=== PATIENT | male | born 1990 | race Caucasian/White ===

== ENCOUNTER 2020-09-10 16:01 | Outpatient (REF) | payer BC, SELFPAY ==
[2020-09-12 18:32] LABS: C. trachomatis RNA TMA NOT DETECTED (NOT DETECTED); N. gonorrhoeae RNA TMA NOT DETECTED (NOT DETECTED)
== END 2020-09-10 16:02 | disposition home or self-care (01) ==
LOC: HO.LAB 16:01
PROVIDERS: Visit Provider Nurse Practitioner Family
DX: Z11.3 Encounter for screening for infections with a predominantly sexual mode of transmission (principal)
CPT/HCPCS: 36415; 87491; 87591

== ENCOUNTER 2020-09-11 14:55 | Outpatient (REF) | payer BC, SELFPAY ==
[2020-09-12 08:31] LABS: HBS Num1 35.89 mIU/mL (0-7.99); HBc Num1 0.08 S/CO (0.00-0.79); HBsAGNum1 0.21 S/CO (0.00-0.99); Hepatitis B Core Antibody Nonreactive (Nonreactive); Hepatitis B Surface Antigen Negative (Negative); ~HepC Num1 0.17 S/CO (0.00-0.79); ~Hepatitis B Surface Antibody REACTIVE (Nonreactive); ~Hepatitis C Antibody Nonreactive (Nonreactive)
[2020-09-12 08:38] LABS: Syphilis Screen Nonreactive (Nonreactive)
[2020-09-12 08:48] LABS: HIV AB/AG Nonreactive (Nonreactive); HIV Num 1 0.36 S/CO (0.00-0.99)
[2020-09-12 13:02] LABS: Herpes Simplex Type 1 IgG <0.90 index; Herpes Simplex Type 2 IgG <0.90 index
== END 2020-09-11 14:56 | disposition home or self-care (01) ==
LOC: HO.HMGCLDS 14:55
PROVIDERS: PCP Internal Medicine; Visit Provider Nurse Practitioner Family
DX: Z11.3 Encounter for screening for infections with a predominantly sexual mode of transmission (principal); Z11.8 Encounter for screening for other infectious and parasitic diseases; Z11.59 Encounter for screening for other viral diseases; Z11.4 Encounter for screening for human immunodeficiency virus [HIV]; Z71.1 Person with feared health complaint in whom no diagnosis is made
CPT/HCPCS: 36415; 86695; 86696; 86704; 86706; 86780; 86803; 87340; 87389

== ENCOUNTER 2020-10-23 15:05 | Outpatient (REF) | payer BC, SELFPAY ==
[2020-10-24 06:41] LABS: Herpes Simplex Type 1 IgG <0.90 index; Herpes Simplex Type 2 IgG <0.90 index
[2020-10-24 08:05] LABS: Syphilis Screen Nonreactive (Nonreactive)
[2020-10-24 08:20] LABS: HBS Num1 35.23 mIU/mL (0-7.99); HBc Num1 0.16 S/CO (0.00-0.79); HIV AB/AG Nonreactive (Nonreactive); HIV Num 1 0.06 S/CO (0.00-0.99); Hepatitis A Antibody IgM 0.22 Index (0-0.79); Hepatitis B Core Antibody Nonreactive (Nonreactive); ~Hepatitis A Antibody IgM Nonreactive (Nonreactive); ~Hepatitis B Surface Antibody REACTIVE (Nonreactive)
[2020-10-24 08:47] LABS: HBsAGNum1 0.16 S/CO (0.00-0.99); Hepatitis B Surface Antigen Negative (Negative); ~HepC Num1 0.15 S/CO (0.00-0.79); ~Hepatitis C Antibody Nonreactive (Nonreactive)
[2020-10-25 09:47] LABS: C. trachomatis RNA TMA NOT DETECTED (NOT DETECTED); N. gonorrhoeae RNA TMA NOT DETECTED (NOT DETECTED)
== END 2020-10-23 15:06 | disposition home or self-care (01) ==
LOC: HO.HMGCLDS 15:05
PROVIDERS: PCP Internal Medicine; Visit Provider Nurse Practitioner Family
DX: Z11.3 Encounter for screening for infections with a predominantly sexual mode of transmission (principal); Z71.1 Person with feared health complaint in whom no diagnosis is made
CPT/HCPCS: 36415; 86695; 86696; 86704; 86706; 86709; 86780; 86803; 87340; 87389; 87491; 87591

== ENCOUNTER 2021-02-02 14:55 | Outpatient (REF) | payer BC, SELFPAY ==
[2021-02-02 17:23] LABS: Syphilis Screen Nonreactive (Nonreactive)
[2021-02-03 04:01] LABS: HBS Num1 34.76 mIU/mL (0-7.99); HIV AB/AG Nonreactive (Nonreactive); HIV Num 1 0.08 S/CO (0.00-0.99); ~Hepatitis B Surface Antibody REACTIVE (Nonreactive)
[2021-02-03 04:05] LABS: HBc Num1 0.07 S/CO (0.00-0.79); HBsAGNum1 0.18 S/CO (0.00-0.99); Hepatitis B Core Antibody Nonreactive (Nonreactive); Hepatitis B Surface Antigen Negative (Negative); ~HepC Num1 0.14 S/CO (0.00-0.79); ~Hepatitis C Antibody Nonreactive (Nonreactive)
[2021-02-03 06:05] LABS: CT PCR NOT DETECTED (Not Detect.); NG PCR NOT DETECTED (Not Detect.)
[2021-02-04 07:29] LABS: Hepatitis A Antibody IgM 0.18 Index (0-0.79); ~Hepatitis A Antibody IgM Nonreactive (Nonreactive)
[2021-02-08 18:12] LABS: HSV 1 IgM IFA Negative (Negative); HSV 2 IgM IFA Negative (Negative)
== END 2021-02-02 14:56 | disposition home or self-care (01) ==
LOC: HO.HMGCLDS 14:55
PROVIDERS: Hospitalist; Nurse Practitioner Family; PCP Internal Medicine; Visit Provider Internal Medicine
DX: Z01.84 Encounter for antibody response examination (principal); Z11.4 Encounter for screening for human immunodeficiency virus [HIV]; Z11.3 Encounter for screening for infections with a predominantly sexual mode of transmission; Z72.51 High risk heterosexual behavior; Z71.1 Person with feared health complaint in whom no diagnosis is made
CPT/HCPCS: 36415; 86695; 86696; 86704; 86706; 86709; 86780; 86803; 87340; 87389; 87491; 87591

== ENCOUNTER 2021-03-03 15:30 | Outpatient (REF) | payer BC, SELFPAY ==
--- NOTE | ~2021-03-03 | XR_ITS ---
EXAMINATION: XR LUMBOSACRAL SPINE CLINICAL INFORMATION: Low back pain COMPARISON: Previous x-ray March [address] March 2011 TECHNIQUE: Three views of the lumbosacral spine. FINDINGS: Bone alignment is normal. No fracture or dislocation is seen. There is new cystic change or lucency and surrounding increased sclerosis in the anterior superior L4 vertebral body endplate. Possible infection/discitis should be considered. There is lucency in the more posterior L4 vertebral body likely corresponding to known bone cyst or lipoma. Disc spaces are normal. Facet joints appear normal. Paraspinal soft tissues are normal. XR/XR lumbar spine 2-3V IMPRESSION: New lucency or cystic change in the anterior superior endplate of the L4 vertebral body and surrounding increased sclerosis. Possible infection should be considered. Follow-up lumbar spine MRI recommended. Findings will be communicated by the [place] work flow board certified music therapist Everette Alcala.
== END 2021-03-03 15:31 | disposition home or self-care (01) ==
LOC: HO.HMGCX 15:30
PROVIDERS: PCP Internal Medicine; Visit Provider Nurse Practitioner Family
DX: M46.26 Osteomyelitis of vertebra, lumbar region (principal)
CPT/HCPCS: 72100

== ENCOUNTER 2021-03-31 12:47 | Outpatient (REF) | payer BC, SELFPAY ==
--- NOTE | ~2021-03-31 | MR_ITS ---
MR LUMBAR SPINE WITHOUT AND WITH CONTRAST CLINICAL INFORMATION: Osteomyelitis of the lumbar vertebra. COMPARISON: Lumbar spine radiographs 03/03/[address] 03/29/2011. TECHNIQUE: MRI of the lumbar spine was obtained using routine sequences with and without contrast. Intravenous contrast: Gadavist 10 mL FINDINGS: There are 5 nonrib-bearing lumbar-type vertebral bodies. There is an acute upper endplate Schmorl's node anteriorly at L4 with surrounding bone marrow edema and enhancement. No abnormal signal nor enhancement within the adjacent disc nor the adjacent vertebral body to suggest the presence of osteomyelitis discitis. There is an intraosseous hemangioma more posteriorly within the L4 vertebral body. Chronic endplate Schmorl's nodes at the lower thoracic levels and at the L1, L2, and L3 levels. No acute fractures. No paravertebral soft tissue swelling. No epidural collections. No suspicious enhancing intraosseous lesions. The conus terminates at the L1 level. There is no pathologic enhancement along the cauda equina nerve roots. L1-L2: Diffuse annular disc bulge. No central canal stenosis and no foraminal stenosis. L2-L3: Disc contour is normal. Mild bilateral facet arthropathy. No central canal stenosis and no foraminal stenosis. L3-L4: Diffuse annular disc bulge and mild to moderate bilateral facet arthropathy. No central canal stenosis and no foraminal stenosis. L4-L5: Diffuse annular disc bulge and severe bilateral facet arthropathy and ligamentum flavum thickening. There is mild to moderate bilateral foraminal stenosis. L5-S1: Diffuse annular disc bulge and mild bilateral facet arthropathy. No central canal stenosis. Mild foraminal encroachment bilaterally. MR/MR lumbar spine wo/w con IMPRESSION: - There is an acute upper endplate Schmorl's node anteriorly at L4 with surrounding bone marrow edema and enhancement. No abnormal signal nor enhancement within the adjacent disc nor the adjacent vertebral body to suggest the presence of osteomyelitis discitis. There is an intraosseous hemangioma more posteriorly within the L4 vertebral body. - Spondylitic changes throughout the lumbar spine as described. No severe central canal stenosis and no severe foraminal stenosis within the lumbar spine.
== END 2021-03-31 12:48 | disposition home or self-care (01) ==
LOC: HO.MRI 12:47
PROVIDERS: PCP Internal Medicine; Visit Provider Nurse Practitioner Family
DX: M46.26 Osteomyelitis of vertebra, lumbar region (principal)
CPT/HCPCS: 72158; A9585

== ENCOUNTER 2021-04-06 13:20 | Outpatient (REF) | payer BC, SELFPAY ==
[2021-04-07 09:26] LABS: CT PCR NOT DETECTED (Not Detect.); NG PCR NOT DETECTED (Not Detect.)
[2021-04-08 08:02] LABS: HBc Num1 0.17 S/CO (0.00-0.79); HBsAGNum1 0.18 S/CO (0.00-0.99); Hepatitis B Core Antibody Nonreactive (Nonreactive); Hepatitis B Surface Antigen Negative (Negative); ~HepC Num1 0.22 S/CO (0.00-0.79); ~Hepatitis C Antibody Nonreactive (Nonreactive)
[2021-04-08 08:31] LABS: Syphilis Screen Nonreactive (Nonreactive)
[2021-04-08 08:39] LABS: HBS Num1 36.14 mIU/mL (0-7.99); HIV AB/AG Nonreactive (Nonreactive); HIV Num 1 0.07 S/CO (0.00-0.99); ~Hepatitis B Surface Antibody REACTIVE (Nonreactive)
[2021-04-15 13:21] LABS: HSV 1 IgM IFA Negative (Negative); HSV 2 IgM IFA Negative (Negative)
== END 2021-04-06 13:21 | disposition home or self-care (01) ==
LOC: HO.HMGCLDS 13:20
PROVIDERS: PCP Internal Medicine; Visit Provider Hospitalist
DX: Z72.51 High risk heterosexual behavior (principal); Z11.3 Encounter for screening for infections with a predominantly sexual mode of transmission
CPT/HCPCS: 36415; 86695; 86696; 86704; 86706; 86780; 86803; 87340; 87389; 87491; 87591

== ENCOUNTER 2021-09-17 10:12 | Outpatient (REF) | payer BC, SELFPAY ==
[2021-09-17 12:07] LABS: HIV AB/AG Nonreactive (Nonreactive); HIV Num 1 0.07 S/CO (0.00-0.99); ~HepC Num1 0.21 S/CO (0.00-0.79); ~Hepatitis C Antibody Nonreactive (Nonreactive)
[2021-09-17 13:49] LABS: CT PCR NOT DETECTED (Not Detect.); NG PCR NOT DETECTED (Not Detect.)
[2021-09-18 08:34] LABS: Syphilis Screen Nonreactive (Nonreactive)
[2021-09-18 09:01] LABS: Herpes Simplex Type 1 IgG <0.90 index; Herpes Simplex Type 2 IgG <0.90 index
== END 2021-09-17 10:13 | disposition home or self-care (01) ==
LOC: HO.HMGCLDS 10:12
PROVIDERS: PCP Nurse Practitioner Family; Visit Provider Nurse Practitioner Family
DX: Z11.4 Encounter for screening for human immunodeficiency virus [HIV] (principal); Z11.3 Encounter for screening for infections with a predominantly sexual mode of transmission
CPT/HCPCS: 36415; 86695; 86696; 86780; 86803; 87389; 87491; 87591

== ENCOUNTER 2021-10-02 11:28 | Outpatient (REF) | payer BC, SELFPAY ==
[2021-10-05 23:17] LABS: Herpes Simplex Type 1 IgG <0.90 index; Herpes Simplex Type 2 IgG <0.90 index
== END 2021-10-02 11:29 | disposition home or self-care (01) ==
LOC: HO.HMGCLDS 11:28
PROVIDERS: Visit Provider Internal Medicine
DX: Z11.3 Encounter for screening for infections with a predominantly sexual mode of transmission (principal)
CPT/HCPCS: 36415; 86695; 86696

== ENCOUNTER 2021-11-05 16:58 | Outpatient (REF) | payer BC, SELFPAY ==
[2021-11-06 09:47] LABS: CT PCR NOT DETECTED (Not Detect.); NG PCR NOT DETECTED (Not Detect.)
== END 2021-11-05 16:59 | disposition home or self-care (01) ==
LOC: HO.LNP 16:58
PROVIDERS: Visit Provider Internal Medicine
DX: N34.2 Other urethritis (principal)
CPT/HCPCS: 87491; 87591

== ENCOUNTER 2021-12-17 14:58 | Outpatient (REF) | payer BC, SELFPAY ==
[2021-12-18 07:44] LABS: HBS Num1 33.22 mIU/mL (0-7.99); HBsAGNum1 0.19 S/CO (0.00-0.99); HIV AB/AG Nonreactive (Nonreactive); HIV Num 1 0.07 S/CO (0.00-0.99); Hepatitis A Antibody IgM 0.15 Index (0-0.79); Hepatitis B Core Antibody Nonreactive (Nonreactive); Hepatitis B Surface Antigen Negative (Negative); ~HepC Num1 0.16 S/CO (0.00-0.79); ~Hepatitis A Antibody IgM Nonreactive (Nonreactive); ~Hepatitis B Surface Antibody REACTIVE (Nonreactive); ~Hepatitis C Antibody Nonreactive (Nonreactive)
[2021-12-18 08:46] LABS: Syphilis Screen Nonreactive (Nonreactive)
[2021-12-25 21:11] LABS: Chlamydia Pneumoniae IgA <1:16 titer (<1:16); Chlamydia Pneumoniae IgM <1:10 titer (<1:10); Chlamydia Psittaci IgA <1:16 titer (<1:16); Chlamydia Psittaci IgG <1:64 titer (<1:64); Chlamydia Psittaci IgM <1:10 titer (<1:10); Chlamydia Trachomatis IgA <1:16 titer (<1:16); Chlamydia Trachomatis IgG <1:64 titer (<1:64); Chlamydia Trachomatis IgM <1:10 titer (<1:10)
== END 2021-12-17 14:59 | disposition home or self-care (01) ==
LOC: HO.HMGCLDS 14:58
PROVIDERS: PCP Internal Medicine; Visit Provider Nurse Practitioner Acute Care
DX: Z11.3 Encounter for screening for infections with a predominantly sexual mode of transmission (principal)
CPT/HCPCS: 36415; 86631; 86632; 86704; 86706; 86709; 86780; 86803; 87340; 87389

== ENCOUNTER 2022-01-04 09:13 | Outpatient (REF) | payer BC, SELFPAY ==
[2022-01-04 11:25] LABS: MANUAL DIFF FLAG NO
[2022-01-04 11:35] LABS: Basophils Absolute Auto 0.1 X10*3/uL (0.0-0.2); Basophils Percent Auto 0.7 % (0-2); Eosinophils Absolute Auto 0.1 X10*3/uL (0.0-0.4); Eosinophils Percent Auto 1.9 % (0-4); Hematocrit 42.5 % (42.0-52.0); Hemoglobin 14.5 g/dl (14.0-18.0); Imm Gran Abs Auto 0.01 X10*3/uL (0.00-0.03); Imm Gran Pct Auto 0.1 % (0.0-0.4); Lymphocytes Absolute Auto 1.5 X10*3/uL (1.2-4.9); Lymphocytes Percent Auto 22.1 % (20-40); Mean Corpuscular HGB Conc 34.1 g/dl (31.0-36.0); Mean Corpuscular Hemoglobin 30.7 pg (27.0-33.0); Mean Platelet Volume 11.8 fL (9.4-12.4); Monocytes Absolute Auto 0.5 X10*3/uL (0.1-1.2); Monocytes Percent Auto 7.4 % (2-11); Neutrophils Absolute Auto 4.6 x10*3/uL (2.0-8.3); Neutrophils Percent Auto 67.8 % (45-73); Platelet Count 278 X10*3/uL (160-400); Red Blood Count 4.72 X10*6/uL (4.60-5.80); White Blood Count 6.7 X10*3/uL (4.8-10.8)
[2022-01-04 12:07] LABS: Alanine Aminotransferase 29 U/L (0-40); Albumin Level 4.6 g/dL (3.5-5.0); Alkaline Phosphatase 61 U/L (39-117); Anion Gap 10 (12-20); Aspartate Amino Transferase 19 U/L (5-37); Bilirubin Total 1.1 mg/dL (0.0-1.0); Blood Urea Nitrogen 17 mg/dL (9-16); Calcium 10.2 mg/dL (8.4-10.2); Carbon Dioxide 27 mmol/L (22-29); Chloride 106 mmol/L (96-108); Estimated Glomerular Filt Rate > 60; Gamma Glutamyl Transpeptidase 13 U/L (11-51); Glucose Random 91 mg/dL (60-115); HBS Num1 34.45 mIU/mL (0-7.99); HBc Num1 0.09 S/CO (0.00-0.79); HBsAGNum1 0.21 S/CO (0.00-0.99); HIV AB/AG Nonreactive (Nonreactive); HIV Num 1 0.06 S/CO (0.00-0.99); Hepatitis B Core Antibody Nonreactive (Nonreactive); Hepatitis B Surface Antigen Negative (Negative); Sodium 138 mmol/L (135-145); Total Protein 7.5 g/dL (6.5-8.0); ~HepC Num1 0.17 S/CO (0.00-0.79); ~Hepatitis B Surface Antibody REACTIVE (Nonreactive); ~Hepatitis C Antibody Nonreactive (Nonreactive)
[2022-01-06 07:59] LABS: Hepatitis A Antibody IgM 0.19 Index (0-0.79); ~Hepatitis A Antibody IgM Nonreactive (Nonreactive)
== END 2022-01-04 09:14 | disposition home or self-care (01) ==
LOC: HO.HMGCLDS 09:13
PROVIDERS: PCP Internal Medicine; Visit Provider Registered Nurse
DX: Z11.4 Encounter for screening for human immunodeficiency virus [HIV] (principal); F11.20 Opioid dependence, uncomplicated
CPT/HCPCS: 36415; 80053; 82977; 85025; 86704; 86706; 86709; 86803; 87340; 87389; 87902

== ENCOUNTER 2022-03-16 13:24 | Outpatient (REF) | payer BC, SELFPAY ==
--- NOTE | ~2022-03-16 | US_ITS ---
EXAMINATION: US SCROTUM CLINICAL INFORMATION: Left-sided testicular pain. COMPARISON: None TECHNIQUE: A sonogram of the scrotum was performed assessing purdy-scale appearance and color Doppler flow. Spectral Doppler analysis of the arterial and venous flow were performed in the testes bilaterally. FINDINGS: No acute abnormalities within the scrotum. The testicles have normal size, contour and echotexture. The right testicle is 4.7 x 2.4 x 4 cm and left testicle 4.3 x 2.5 x 4.2 cm. No testicular microlithiasis or mass. The color Doppler images with spectral waveforms show presence of normal symmetric arterial flow within each testicle. The epididymis has normal echotexture, bilaterally. A normal amount of fluid is detected within each scrotal sac. There is a left-sided varicocele. Some of the left-sided scrotal veins are measuring at or just above 0.3 cm diameter. There is no extratesticular mass. US/US scrotum doppler IMPRESSION: * No acute scrotal abnormalities. No evidence of epididymitis-orchitis. * No testicular mass or torsion. * There is a left-sided varicocele.
--- NOTE | ~2022-03-16 | US_ITS ---
EXAMINATION: US SCROTUM CLINICAL INFORMATION: Testicular pain. COMPARISON: None TECHNIQUE: A sonogram of the scrotum was performed assessing purdy-scale appearance and color Doppler flow. Spectral Doppler analysis of the arterial and venous flow were performed in the testes bilaterally. FINDINGS: RIGHT: Right testicle measures 4.7 x 2.4 x 4.0 cm, volume 23.5 mL. No focal testicular parenchymal lesions are visualized. Spectral Doppler analysis of the arterial and venous flow is normal in the right testis. Right epididymal head is normal in size. Small hydrocele with internal debris. Small varicocele noted. Right epididymal Doppler flow is normal. LEFT: Left testicle measures 4.3 x 2.4 x 4.2 cm, volume 23.5 mL. No focal testicular parenchymal lesions are visualized. Spectral Doppler analysis of the arterial and venous flow is normal in the left testis. Left epididymal head is normal in size. Small hydrocele with internal debris. Small varicocele noted. Left epididymal Doppler flow is normal. US/US scrotum IMPRESSION: Small bilateral hydroceles and varicoceles. No testicular mass or torsion.
== END 2022-03-16 13:25 | disposition home or self-care (01) ==
LOC: HO.HMGCX 13:24
PROVIDERS: Visit Provider Physician Assistant
DX: N50.812 Left testicular pain (principal)
CPT/HCPCS: 76870; 93975

== ENCOUNTER 2023-07-01 08:31 | Outpatient (AMB) | payer BC, SELFPAY ==
--- NOTE | 2023-07-01 08:33 | MHC.PC.OV ---
Vital Signs 07/01/23 08:34 Height 6 ft 6 in Weight 223 lb 4 oz BMI 25.8 BP 130/88 Blood Pressure Location Rt brachial Position Sitting Pulse 88 Pulse Source Pulse Oximeter Pulse Oximetry (%) 97 Oxygen Delivery Method Room Air Intake Visit Reasons: Annual PE Allergies No Known Allergies Allergy (Verified 07/01/23 08:36) Medication List - Last Reconciled 07/01/23 by Porsha More MD cyclobenzaprine 5 mg PO BEDTIME PRN 30 days lidocaine 4% (Blue-Emu Lidocaine Patch) 1 patch topical DAILY PRN naproxen 500 mg PO QAM PRN 90 days Tobacco use date assessed: 07/01/23 Dental Screening Dental Screen Date: 07/01/23 Did you have a dental visit in the last 12 months?: Yes Did you have a dental problem in the last 6 months where you did not have access to dental care?: No Was dental information given to patient?: Patient has dentist HPI Annual PE HPI Details Patient is 33-year-old gentleman came in today for physical examination Patient get flare-up of his lumbar back pain 2 or 3 times a year He said that he picked up his girlfriend 7-year-old daughter during triggered reading and now his back is acting up again He has appointment [facility] coming up next week. He has been taking naproxen and Flexeril 5 mg which is not helping I have increased the dose of Flexeril to 10 mg, and I have also sent tramadol 50 mg he may take that up to 3 times a day Q 8 Patient is aware of side effect of tramadol, it will make him drowsy and will cause constipation. No driving while taking this medication. He tells me that he has not been drinking. Lab order placed to be done today patient is fasting. He has moved to [place] I am not booking and other physical exam as patient will look for a new doctor in [place] as primary care. [facility] Surgical History H/O shoulder surgery Social History [facility] Alcohol intake: current Alcohol intake frequency: a few times a week Patient Tobacco Use Status: Current someday Tobacco user e-Cigarette/Vaping Use: Currently Using service: No Current occupational status: employed Cognitive needs: No Hearing needs: No Vision needs: No Questionnaire PHQ-9 Over the last 2 weeks, how often have you been bothered by any of the following problems? 1. Little interest or pleasure in doing things: not at all 2. Feeling down, depressed, or hopeless: not at all 3. Trouble falling or staying asleep, or sleeping too much: not at all 4. Feeling tired or having little energy: more than half the days 5. Poor appetite or overeating: several days 6. Feeling bad about yourself - or that you are a failure or have let yourself or your family down: not at all 7. Trouble concentrating on things, such as reading the newspaper or watching television: several days 8. Moving or speaking so slowly that other people could have noticed. Or the opposite - being so fidgety or restless that you have been moving around a lot more than usual: not at all 9. Thoughts that you would be better off or of hurting yourself in some way: not at all Total score: 4 Depression Screening Interpretation: Negative Depression Screening Done: Yes 05645 - PHQ-9 Billing: Yes Source: Developed by Drs. Gerald Parson, Ashia Haro, Kenton Moraes and colleagues, with an educational memo from [employer]. Thrive Questionnaire Date Thrive assessed: 07/01/23 I am a: Patient What is your living situation today?: I have a steady place to live Within the past 12 months, did the food you bought not last and you didn't have the money to get more?: Never true Within the past 12 months, did you worry whether your food would run out before you got money to buy more?: Never true Do you have trouble paying for medicines?: No Do you have trouble getting transportation to medical appointments?: No Do you have trouble paying your heating and electricity bill?: No Do you have trouble taking care of your child, family member or friend?: No Do you have trouble with day-to-day activities such as bathing, preparing meals, shopping, managing finances, etc.?: No Are you currently unemployed and looking for a job?: No Are you interested in more education?: No Please select the resources that you would like help with: None Currently or been in a relationship where the following occur: no concerns reported HENRY-7 AMB Questionnaire HENRY-7 Date HENRY - 7 assessed: 07/01/23 Feeling nervous, anxious, or on edge: 0 = Not at all Not being able to stop or control worryin = Not at all Worrying too much about different things: 0 = Not at all Trouble relaxin = Several days Being so restless that it is hard to sit still: 0 = Not at all Becoming easily annoyed or irritable: 0 = Not at all Feeling afraid as if something awful might happen: 0 = Not at all Total HENRY-7 score (0-4 normal; 5-9 mild; 10-14 moderate; 15-21 severe): 1 Source: Developed by Drs. Gerald Parson, Ashia Haro, Kenton Moraes and colleagues, with an educational memo from [employer]. HENRY-7 Assessment Billing HENRY-7 Assessment Tool: HENRY-7 Assessment 73875 Review of Systems Const Denies chills, Denies fever(s) and Denies headache(s) Eyes Denies blurry vision ENT Denies headache(s), Denies nasal discharge, Denies nasal obstruction, Denies odynophagia and Denies sinus pain Card Denies chest pain at rest and Denies chest pain with activity Resp Denies cough and Denies hemoptysis GI Denies diarrhea, Denies odynophagia, Denies vomiting and Denies hematemesis Reports as per HPI Musc Denies abnormal gait Skin/Breast Reports as per HPI Neuro Denies Neuro-related abnormal movements, Denies Abnormal speech present, Denies abnormal gait, Denies headache(s) and Denies Sensory deficit (Neuro) Psych Denies mood swings and Denies paranoia Endo Reports as per HPI Raz/Lymph Reports as per HPI Aller/Immun Reports as per HPI Physical exam (Primary Care) Vital Signs: Last Vital Signs Pulse 88 07/01/23 08:34 BP 130/88 07/01/23 08:34 Pulse Ox 97 07/01/23 08:34 Oxygen Delivery Method Room Air 07/01/23 08:34 BMI result Body Mass Index 25.8 Tobacco/Smoking Status: Tobacco use Status Tobacco use date assessed 07/01/23 07/01/23 08:38 Patient Tobacco Use Status Current someday Tobacco 07/01/23 08:33 e-Cigarette/Vaping Use Currently Using 07/01/23 08:33 PHQ-9: PHQ-9 Score PHQ-9: Total score 4 07/01/23 09:02 Depression Screening Interpretation: Negative Thrive Assessment: Date of Thrive Assessment Date Thrive assessed 07/01/23 07/01/23 09:02 Currently or been in a relationship where the following occur: no concerns reported Const General: cooperative, comfortable and no acute distress Orientation/consciousness: patient oriented x3 HENMT Head: Yes normocephalic and Yes atraumatic Eyes General: appearance normal, both eyes and all related structures Pupils: Equal, round and reactive pupils present EOM: EOMs intact bilaterally Neck Neck: Yes supple and No lymphadenopathy Thyroid: Thyroid normal Lymphatic: no lymphadenopathy noted Resp Effort & Inspection: normal respiratory effort and able to speak in complete sentences Auscultation: clear to auscultation bilaterally Cardio Heart sounds: S1 normal heart sound present and S2 normal heart sound present GI Palpation (GI): Soft to palpation and nontender Auscultation: normal bowel sounds General: Yes no CVA tenderness Back/Spine/Pelvis Other: Tender over lumbar spine with percussion, tender over paraspinal as well, range of motion diminished, unable to lift leg laying down either side. No paresthesia lower extremity no weakness no difficulty walking no bowel or bladder issue Back: no CVA tenderness Skin General skin exam: elasticity normal and turgor normal Neuro General: patient oriented x3 and gait normal Cranial nerves: Yes Equal, round and reactive pupils present Speech: No Abnormal speech present Sensory Exam: No Sensory deficit (Neuro) Coordination: tandem gait normal and Romberg test negative Extrem General: Yes normal exam except as noted and No edema Assessment and Plan Assessment & Plan (1) Encounter for general adult medical examination with abnormal findings: Code(s): Z00.01 - Encounter for general adult medical examination with abnormal findings (2) Lumbar back pain: Code(s): M54.5 - Low back pain Plan Patient is 33-year-old gentleman came in today for physical examination Patient get flare-up of his lumbar back pain 2 or 3 times a year He said that he picked up his girlfriend 7-year-old daughter during triggered reading and now his back is acting up again [facility]. He has been taking naproxen and Flexeril 5 mg which is not helping I have increased the dose of Flexeril to 10 mg, and I have also sent tramadol 50 mg he may take that up to 3 times a day Q 8 Patient is aware of side effect of tramadol, it will make him drowsy and will cause constipation. No driving while taking this medication. He tells me that he has not been drinking. Lab order placed to be done today patient is fasting. He has moved to [place] I am not booking and other physical exam as patient will look for a new doctor in [place] as primary care. Orders: Orders Complete Blood Count Auto Diff Today M54.5 - Low back pain, Z00.01 - Encounter for general adult medical examination with abnormal findings Comprehensive [place]. Panel Fast Today M54.5 - Low back pain, Z00.01 - Encounter for general adult medical examination with abnormal findings Lipid Panel Today M54.5 - Low back pain, Z00.01 - Encounter for general adult medical examination with abnormal findings Medications: New tramadol 50 mg PO Q8H PRN 30 tabs 0RF pain 10 days Changed From cyclobenzaprine 5 mg PO BEDTIME 30 days PRN 30 tabs 0RF muscle spasm To cyclobenzaprine 10 mg PO BEDTIME PRN 30 tabs 0RF muscle spasm 30 days Coding Level of Care Code Est Pt Prev Care 18-39y([id number]) Diagnoses Encounter for general adult medical examination with abnormal findings Z00.01 Lumbar back pain M54.5 Additional Codes HENRY-7 Assessment Billing - HENRY-7 Assessment Tool: HENRY-7 Assessment [id number] ([id number])
[2023-07-01 08:34] VITALS: BP 130/88; PULSE 88; O2SAT 97; BMI 25.8
== END 2023-07-01 09:25 | disposition home or self-care (01) ==
PROVIDERS: PCP Internal Medicine; Visit Provider Internal Medicine
DX: Z00.00 Encounter for general adult medical examination without abnormal findings (principal); M54.50 Low back pain, unspecified
CPT/HCPCS: 99395

== ENCOUNTER 2023-07-01 08:59 | Outpatient (REF) | payer BC, SELFPAY ==
[2023-07-01 11:22] LABS: MANUAL DIFF FLAG NO
[2023-07-01 11:41] LABS: Alanine Aminotransferase 17 U/L (0-40); Albumin Level 4.5 g/dL (3.5-5.0); Alkaline Phosphatase 59 U/L (39-117); Anion Gap 9 (12-20); Aspartate Amino Transferase 17 U/L (5-37); Bilirubin Total 0.7 mg/dL (0.0-1.0); Blood Urea Nitrogen 14 mg/dL (9-16); Carbon Dioxide 28 mmol/L (22-29); Chloride 106 mmol/L (96-108); Cholesterol 123 mg/dL (<200); Estimated Glomerular Filt Rate > 60; Glucose Fasting 98 mg/dL (60-99); HDL Cholesterol 41 mg/dL (>40); LDL Cholesterol Calculated 63 mg/dL (<100); Potassium 4.3 mmol/L (3.3-5.1); Sodium 139 mmol/L (135-145); Total Protein 7.5 g/dL (6.5-8.0); Triglycerides 96 mg/dL (<150)
[2023-07-01 11:44] LABS: Basophils Absolute Auto 0.1 X10*3/uL (0.0-0.2); Basophils Percent Auto 0.7 % (0-2); Eosinophils Absolute Auto 0.1 X10*3/uL (0.0-0.4); Eosinophils Percent Auto 1.8 % (0-4); Hematocrit 42.2 % (42.0-52.0); Hemoglobin 14.3 g/dl (14.0-18.0); Imm Gran Abs Auto 0.02 X10*3/uL (0.00-0.03); Imm Gran Pct Auto 0.3 % (0.0-0.4); Lymphocytes Absolute Auto 1.5 X10*3/uL (1.2-4.9); Lymphocytes Percent Auto 20.8 % (20-40); Mean Corpuscular HGB Conc 33.9 g/dl (31.0-36.0); Mean Corpuscular Hemoglobin 29.9 pg (27.0-33.0); Mean Corpuscular Volume 88.1 fL (80.0-98.0); Mean Platelet Volume 11.4 fL (9.4-12.4); Monocytes Absolute Auto 0.5 X10*3/uL (0.1-1.2); Monocytes Percent Auto 6.4 % (2-11); Neutrophils Absolute Auto 5.1 x10*3/uL (2.0-8.3); Platelet Count 293 X10*3/uL (160-400); Red Blood Count 4.79 X10*6/uL (4.60-5.80); Red Cell Distribution Width 11.9 % (11.0-16.0); White Blood Count 7.3 X10*3/uL (4.8-10.8)
== END 2023-07-01 09:00 | disposition home or self-care (01) ==
LOC: HO.HMGCLDS 08:59
PROVIDERS: PCP Internal Medicine; Visit Provider Internal Medicine
DX: Z00.01 Encounter for general adult medical examination with abnormal findings (principal); M54.50 Low back pain, unspecified
CPT/HCPCS: 36415; 80053; 80061; 85025

== ENCOUNTER 2023-11-15 11:00 | Outpatient (AMB) | payer BC, SELFPAY ==
[2023-11-15 11:03] VITALS: BP 136/84; PULSE 85; O2SAT 98; BMI 25.7
--- NOTE | 2023-11-15 11:03 | A.OFFPC_ITS ---
Vital Signs 11/15/23 11:03 Height 6 ft 6 in Weight 222 lb 6 oz BMI 25.7 BP 136/84 Blood Pressure Location Rt brachial Position Sitting Pulse 85 Pulse Source Pulse Oximeter Pulse Oximetry (%) 98 Oxygen Delivery Method Room Air Intake Visit Reasons: ED Follow Up Allergies No Known Allergies Allergy (Verified 11/15/23 11:03) Medication List - Last Reconciled 11/15/23 by Porsha More MD cyclobenzaprine 10 mg PO BEDTIME PRN 30 days naproxen 500 mg PO QAM PRN 90 days Tobacco use date assessed: 11/15/23 Dental Screening Dental Screen Date: 11/15/23 Did you have a dental visit in the last 12 months?: Yes Did you have a dental problem in the last 6 months where you did not have access to dental care?: No Was dental information given to patient?: Patient has dentist HPI ED Follow Up HPI Details Patient is 33-year-old gentleman came in today to have emergency room visit follow-up Patient has done drinking alcohol and it has been 2 years Patient says that he was having chest pain when he went to the emergency room I see that he is on naproxen for back pain that he is still taking off and on In emergency room he had EKG labs done and was told that he does not have any cardiac reason for chest pain I did the EKG today which shows normal sinus rhythm no acute findings I am starting him on pantoprazole 40 mg to be taken at night I have sent it for 3 months We will book a telephone visit in 2 months to see how is doing. Lack of concentration: Patient says that he is having very disruptive sleep as he could not stop moving his legs And then in the morning he loses his focus, the other day he was telling a story to his friend and midway telling the story he forgot it. There is a possibility of restless legs syndrome however I think patient would benefit from sleep specialist visit, and might need sleep study. Referral placed. [facility]LY [facility] Surgical History H/O shoulder surgery Social History Housing: Condominium Alcohol intake: current Alcohol intake frequency: a few times a week Patient Tobacco Use Status: Former Tobacco user e-Cigarette/Vaping Use: Currently Using service: No Current occupational status: employed Cognitive needs: No Hearing needs: No Vision needs: No Questionnaire PHQ-9 Over the last 2 weeks, how often have you been bothered by any of the following problems? 1. Little interest or pleasure in doing things: several days 2. Feeling down, depressed, or hopeless: not at all 3. Trouble falling or staying asleep, or sleeping too much: nearly every day 4. Feeling tired or having little energy: several days 5. Poor appetite or overeating: not at all 6. Feeling bad about yourself - or that you are a failure or have let yourself or your family down: more than half the days 7. Trouble concentrating on things, such as reading the newspaper or watching television: not at all 8. Moving or speaking so slowly that other people could have noticed. Or the opposite - being so fidgety or restless that you have been moving around a lot more than usual: not at all 9. Thoughts that you would be better off or of hurting yourself in some way: not at all Total score: 7 Depression Screening Interpretation: Negative Depression Screening Done: Yes 10013 - PHQ-9 Billing: Yes Source: Developed by Drs. Gerald Parson, Ashia Haro, Kenton Moraes and colleagues, with an educational memo from [employer]. Thrive Questionnaire Date Thrive assessed: 11/15/23 I am a: Patient What is your living situation today?: I have a steady place to live Within the past 12 months, did the food you bought not last and you didn't have the money to get more?: Never true Within the past 12 months, did you worry whether your food would run out before you got money to buy more?: Never true Do you have trouble paying for medicines?: No Do you have trouble getting transportation to medical appointments?: No Do you have trouble paying your heating and electricity bill?: No Do you have trouble taking care of your child, family member or friend?: No Do you have trouble with day-to-day activities such as bathing, preparing meals, shopping, managing finances, etc.?: No Are you currently unemployed and looking for a job?: No Are you interested in more education?: No Please select the resources that you would like help with: None Currently or been in a relationship where the following occur: no concerns reported THRIVE Score: 0 AUDIT C Alcohol Use Questionnaire (AUDIT-C) 1. How often do you have a drink containing alcohol?: Never 3. How often do you have six or more drinks on one occasion?: Never Total Score: 0 Score Reviewed/Action Taken: Yes HENRY-7 AMB Questionnaire HENRY-7 Date HENRY - 7 assessed: 07/01/23 Feeling nervous, anxious, or on edge: 1 = Several days Not being able to stop or control worryin = Several days Worrying too much about different things: 1 = Several days Trouble relaxin = Several days Being so restless that it is hard to sit still: 1 = Several days Becoming easily annoyed or irritable: 1 = Several days Feeling afraid as if something awful might happen: 0 = Not at all Total HENRY-7 score (0-4 normal; 5-9 mild; 10-14 moderate; 15-21 severe): 6 Source: Developed by Drs. Gerald Parson, Ashia Haro, Kenton Moraes and colleagues, with an educational memo from [employer]. HENRY-7 Assessment Billing HENRY-7 Assessment Tool: HENRY-7 Assessment 26996 Review of Systems Const Denies chills and Denies fever(s) ENT Denies epistaxis and Denies nasal discharge Card Denies chest pain Resp Denies chest congestion, Denies cough and Denies hemoptysis GI Denies diarrhea and Denies nausea Skin/Breast Denies rash Neuro Reports no additional complaints Psych Reports no additional complaints Endo Reports no additional complaints Physical exam (Primary Care) Vital Signs: Last Vital Signs Pulse 85 11/15/23 11:03 BP 136/84 11/15/23 11:03 Pulse Ox 98 11/15/23 11:03 Oxygen Delivery Method Room Air 11/15/23 11:03 BMI result Body Mass Index 25.7 Tobacco/Smoking Status: Tobacco use Status Tobacco use date assessed 11/15/23 11/15/23 11:08 Patient Tobacco Use Status Former Tobacco user 11/15/23 11:08 e-Cigarette/Vaping Use Currently Using 11/15/23 11:08 PHQ-9: PHQ-9 Score PHQ-9: Total score 7 03/26/24 11:40 Depression Screening Interpretation: Negative Thrive Assessment: Date of Thrive Assessment Date Thrive assessed 11/15/23 11/15/23 11:40 Currently or been in a relationship where the following occur: no concerns re ported Const General: cooperative, comfortable and no acute distress Orientation/consciousness: patient oriented x3 HENMT Head: Yes normocephalic Eyes General: appearance normal, both eyes and all related structures Neck Neck: Yes supple Resp Effort & Inspection: normal respiratory effort, no cough and no stridor Cardio Rhythm: regular rhythm Heart sounds: S1 normal heart sound present and S2 normal heart sound present Skin General skin exam: turgor normal Neuro General: patient oriented x3, tone normal and moves all extremities Office Procedures EKG 35103-[id number], Complete Assessment and Plan Assessment & Plan (1) Hospital discharge follow-up: Code(s): Z09 - Encounter for follow-up examination after completed treatment for conditions other than malignant neoplasm (2) Chest pain, atypical: Code(s): R07.89 - Other chest pain (3) Acid reflux: Code(s): K21.9 - Gastro-esophageal reflux disease without esophagitis Qualifiers: Esophagitis presence: without esophagitis Qualified Code(s): K21.9 - G richard-esophageal reflux disease without esophagitis (4) 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, unspecified type; F51.8 - Other sleep disorders not due to a substance or known physiological condition (5) Lack of concentration: Code(s): R41.840 - Attention and concentration deficit Plan Patient is 33-year-old gentleman came in today to have emergency room visit follow-up Patient has done drinking alcohol and it has been 2 years Patient says that he was having chest pain when he went to the emergency room I see that he is on naproxen for back pain that he is still taking off and on In emergency room he had EKG labs done and was told that he does not have any cardiac reason for chest pain I did the EKG today which shows normal sinus rhythm no acute findings I am starting him on pantoprazole 40 mg to be taken at night I have sent it for 3 months We will book a telephone visit in 2 months to see how is doing. Lack of concentration: Patient says that he is having very disruptive sleep as he could not stop moving his legs And then in the morning he loses his focus, the other day he was telling a story to his friend and midway telling the story he forgot it. There is a possibility of restless legs syndrome however I think patient would benefit from sleep specialist visit, and might need sleep study. Referral placed. 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, unspecified type, R41.840 - Attention and concentration deficit Medications: New pantoprazole 40 mg PO DAILY 90 tabs 0RF Coding Level of Care Code Est Pt Level 4 (65725) Diagnoses Hospital discharge follow-up Z09 Chest pain, atypical R07.89 Gastroesophageal reflux disease without esophagitis K21.9 Esophagitis presence: without esophagitis Disrupted sleep-wake cycle G47.20; F51.8 Lack of concentration R41.840 CPT Codes EKG - CPT: 12192-[id number], Complete ([id number]) Additional Codes HENRY-7 Assessment Billing - HENRY-7 Assessment Tool: HENRY-7 Assessment 52487 ([id number]) Time Spent (min) 43 Comment 5 pre visit. 21 with patient, 7 EKG, 5 charting, 5 coordination of care
== END 2023-11-15 12:12 | disposition home or self-care (01) ==
PROVIDERS: PCP Internal Medicine; Visit Provider Internal Medicine
DX: R07.89 Other chest pain (principal); K21.9 Gastro-esophageal reflux disease without esophagitis; G47.20 Circadian rhythm sleep disorder, unspecified type; Z09 Encounter for follow-up examination after completed treatment for conditions other than malignant neoplasm; F51.8 Other sleep disorders not due to a substance or known physiological condition; R41.840 Attention and concentration deficit
CPT/HCPCS: 93000; 99214

== ENCOUNTER 2024-06-27 10:59 | Outpatient (REF) | payer BC, SELFPAY ==
[2024-06-27 17:31] LABS: Influenza A PCR NEGATIVE (Negative); Influenza B PCR NEGATIVE (Negative); Resp Syncy Virus RNA Qual PCR NEGATIVE (Negative); SARS COV2 PCR INHOUSE NEGATIVE (Negative)
== END 2024-06-27 11:00 | disposition home or self-care (01) ==
LOC: HO.LNP 10:59
PROVIDERS: PCP Internal Medicine; Visit Provider Registered Nurse
DX: J06.9 Acute upper respiratory infection, unspecified (principal)
CPT/HCPCS: 0241U

== ENCOUNTER 2024-06-27 10:59 | Outpatient (AMB) | payer BC, SELFPAY ==
--- NOTE | 2024-06-27 11:36 | AM.OFFWIN_ITS ---
Intake Vital Signs 06/27/24 11:44 Weight 224 lb BP 140/80 H Blood Pressure Location Lt brachial Position Sitting Pulse 105 H Pulse Source Pulse Oximeter Temp 99.9 F Temp Source Oral Pulse Oximetry (%) 97 Oxygen Delivery Method Room Air Intake Visit Reasons: EP- pneumonia?? , has fever Intake Note: Patient here for cough, fevers, SOB. Pt states his daughter does have pneumonia. Patient Tobacco Use Status: Former Tobacco user Allergies No Known Allergies Allergy (Verified 06/27/24 11:37) Do you need a note to return to daycare/school/sports/work: Yes HPI EP- pneumonia?? , has fever HPI Details This note is constructed using voice recognition software. While every effort has been made to ensure accuracy, welder operator errors may have been included. The patient is a 34 year old male who presents to the clinic today with cough and congestion with low back pain for the past 3 days. He notes that his daughter does have pneumonia, and has been sick for the last week and a half. He started with symptoms on Tuesday with cough, which later developed some low back pain after an extreme coughing fit. He denies fever, chills. He reports shortness of breath, but describes it as a tight sensation in his chest when he takes a deep breath. [facility] Surgical History H/O shoulder surgery Social History [facility] Alcohol intake: current Alcohol intake frequency: a few times a week Patient Tobacco Use Status: Former Tobacco user e-Cigarette/Vaping Use: Currently Using service: No Current occupational status: employed Cognitive needs: No Hearing needs: No Vision needs: No Review of Systems Const All systems reviewed & are unremarkable except as noted in HPI and below Physical Exam Const General: cooperative, healthy appearing, comfortable and no acute distress Orientation/consciousness: patient oriented x3 Limitations: no limitations HEENT Head: Yes normal to inspection Ears: hearing grossly normal bilaterally, external ears normal and TM's normal bilaterally General nose exam: Normal external nose present, Normal nares present and No nasal discharge present Face and sinus: Yes normal facial exam and Yes sinuses nontender Mouth: Normal oral and palatal mucosa present and moist mucous membranes Throat: Yes tonsils normal, Yes uvula midline and Yes posterior oropharynx abnormal (Erythema) Eyes General: appearance normal, both eyes and all related structures Neck Neck: Yes normal visual inspection Resp Effort & Inspection: normal respiratory effort, able to speak in complete sentences, Actively coughing, no respiratory distress, not tachypneic, no tripod positioning and no use of accessory muscles Auscultation: clear to auscultation bilaterally Cardio Jugular venous distension: no JVD Rate: regular rate Rhythm: regular rhythm Heart sounds: S1 normal heart sound present, S2 normal heart sound present, no click, no gallops, no murmurs and no rubs Skin General skin exam: no rashes or lesions noted, elasticity normal and turgor normal Neuro General: patient oriented x3 Extrem General: Yes normal to inspection and Yes no clubbing, cyanosis or edema Assessment & Plan Assessment & Plan (1) URI (upper respiratory infection): Code(s): J06.9 - Acute upper respiratory infection, unspecified Qualifiers: URI type: unspecified URI Qualified Code(s): J06.9 - Acute upper respiratory infection, unspecified Plan: Viral swab obtained to rule out Covid based on symptoms. Advised mask wearing while symptomatic and quarantine per current CDC guidelines. Reviewed at home support methods including hydration, humidification, vix vapor rub, sinus rinse. Prescription for prednisone for symptomatic management as well as albuterol sent to requested pharmacy. Advised follow up with worsening symptoms such as dyspnea at rest, which would require emergent evaluation. Plan See above for full details and plan. Orders: Orders SARS-CoV2/FLU/RSV Today J06.9 - Acute upper respiratory infection, unspecified Medications: New prednisone 40 mg (2 x 20 mg) PO DAILY 5 days 10 tabs 0RF albuterol sulfate 90 mcg/actuation 1 - 2 puffs inhalation QID PRN 6.7 grams 0RF Shortness Of Breath Or Wheezing Coding Level of Care Code Est Pt Level 3 (67771) Diagnoses Upper respiratory tract infection, unspecified type J06.9 URI type: unspecified URI
[2024-06-27 11:44] VITALS: BP 140/80; PULSE 105; TEMP 37.7; O2SAT 97
== END 2024-06-27 11:56 | disposition home or self-care (01) ==
PROVIDERS: PCP Internal Medicine; Visit Provider Registered Nurse
DX: J06.9 Acute upper respiratory infection, unspecified (principal)

== ENCOUNTER 2024-09-14 13:12 | Outpatient (AMB) | payer BC, SELFPAY ==
[2024-09-14 13:18] VITALS: BP 138/82; PULSE 96; O2SAT 97; BMI 26.3
--- NOTE | 2024-09-14 13:18 | A.OFFPC_ITS ---
Vital Signs 09/14/24 13:18 Height 6 ft 6 in Weight 227 lb 4 oz BMI 26.3 BP 138/82 Blood Pressure Location Lt brachial Position Sitting Pulse 96 Pulse Source Pulse Oximeter Pulse Oximetry (%) 97 Oxygen Delivery Method Room Air Intake Visit Reasons: PE Allergies No Known Allergies Allergy (Verified 09/14/24 13:20) Medication List - Last Reviewed 09/14/24 by Erik Kam MA albuterol sulfate 90 mcg/actuation 1 - 2 puffs inhalation QID PRN cyclobenzaprine 10 mg PO BEDTIME PRN 30 days naproxen 500 mg PO QAM PRN 90 days pantoprazole 40 mg PO DAILY Tobacco use date assessed: 09/14/24 Dental Screening Dental Screen Date: 09/14/24 Did you have a dental visit in the last 12 months?: Yes Did you have a dental problem in the last 6 months where you did not have access to dental care?: No Was dental information given to patient?: Patient has dentist HPI PE HPI Details Physical exam appointment Patient suffers from chronic back pain and takes muscle relaxer every now and then He also has a history of dyspepsia and is taking PPI, has not drank in 3 years Complaining of epigastric discomfort and is requesting referral to gastroenterology. Patient was instructed to stop taking naproxen that he takes every now and then for back pain - The patient reports intermittent nause a and general stomach discomfort over the past week Health Maintenance - Scheduled fasting labs for a complete evaluation as no labs were performed in the past year. - Abstinence from alcohol, ongoing for n early three years. - Referral to a gastrointestinal special ist for further investigation of stomach symptoms. Medications - Muscle relaxer for management of back pain, taken every few days as needed. - Stomach medication for gastrointestina l relief. Patient Instructions - Stop the use of Naproxen to see if gas trointestinal symptoms improve. - Follow up with a specialist for furthe r evaluation of stomach issues. - Complete fasting labs as scheduled. - Return for a follow-up in one year for the next physical exam. Review of Systems - Gastrointestinal: Reports stomach disc omfort, intermittent nausea. - Neurological: Denies any tingling or n umbness in extremities. - Dermatological: Denies any current ski n problems; consults a wax cutter as needed. - General: No fever no chills - Neurological: No headaches no dizzin ess - Ear nose throat: No sore throat no hearing difficulty no ear pain - Cardiovascular: No syncope, no chest pain, no palpitations - Endocrine: No polyuria polydipsia no heat intolerance - Genitourinary: No dysuria - Skin: No new complaints Physical Exam General: Cooperative, healthy appearing, comfortable, no acute distress Orientation: Patient oriented x3 Limitations: None Head: Normal to inspection Ears: Within normal limit visually Nose: Normal external nose present Face and sinus: Normal facial exam Eyes: Appearance normal, extraocular movement intact pupils reactive Neck: Normal visual inspection and supple Respiratory: Normal respiratory effort and able to speak in complete sentences. Clear to auscultation, no stridor Cardiovascular: S1 and S2 GI: Normal to inspection. Soft to palpation and nontender, but patient reports stomach discomfort and nausea which is not present at this time Skin: Turgor normal, no acute findings Neuro: Patient oriented x3, motor sensory intact, balance intact, tandem pass Extremities: Normal to inspection, no swelling, knees are okay MRI 2020 Spondylitic changes throughout the lumbar spine as described. No severe central canal stenosis and no severe foraminal stenosis within the lumbar spine. [facility] Surgical History H/O shoulder surgery Social History Housing: Condominium Alcohol intake: current Alcohol intake frequency: a few times a week Patient Tobacco Use Status: Former Tobacco user e-Cigarette/Vaping Use: Currently Using service: No Current occupational status: employed Cognitive needs: No Hearing needs: No Vision needs: No Questionnaire PHQ-9 Over the last 2 weeks, how often have you been bothered by any of the following problems? 1. Little interest or pleasure in doing things: not at all 2. Feeling down, depressed, or hopeless: not at all 3. Trouble falling or staying asleep, or sleeping too much: not at all 4. Feeling tired or having little energy: not at all 5. Poor appetite or overeating: several days 6. Feeling bad about yourself - or that you are a failure or have let yourself or your family down: not at all 7. Trouble concentrating on things, such as reading the newspaper or watching television: not at all 8. Moving or speaking so slowly that other people could have noticed. Or the opposite - being so fidgety or restless that you have been moving around a lot more than usual: not at all 9. Thoughts that you would be better off or of hurting yourself in some way: not at all Total score: 1 Depression Screening Interpretation: Negative Depression Screening Done: Yes 17161 - PHQ-9 Billing: Yes Source: Developed by Drs. Gerald Parson, Ashia Haro, Kenton Moraes and colleagues, with an educational memo from [employer]. Thrive Questionnaire Date Thrive assessed: 09/14/24 I am a: Patient What is your living situation today?: I have a steady place to live Within the past 12 months, did the food you bought not last and you didn't have the money to get more?: Never true Within the past 12 months, did you worry whether your food would run out before you got money to buy more?: Never true Do you have trouble paying for medicines?: No Do you have trouble getting transportation to medical appointments?: No Do you have trouble paying your heating and electricity bill?: No Do you have trouble taking care of your child, family member or friend?: No Do you have trouble with day-to-day activities such as bathing, preparing meals, shopping, managing finances, etc.?: No Are you currently unemployed and looking for a job?: No Are you interested in more education?: No Please select the resources that you would like help with: None Currently or been in a relationship where the following occur: No concerns reported THRIVE Score: 0 AUDIT C Alcohol Use Questionnaire (AUDIT-C) 1. How often do you have a drink containing alcohol?: Never 3. How often do you have six or more drinks on one occasion?: Never Total Score: 0 Score Reviewed/Action Taken: Yes HENRY-7 AMB Questionnaire HENRY-7 Date HENRY - 7 assessed: 09/14/24 Feeling nervous, anxious, or on edge: 0 = Not at all Not being able to stop or control worryin = Not at all Worrying too much about different things: 0 = Not at all Trouble relaxin = Not at all Being so restless that it is hard to sit still: 3 = Nearly every day Becoming easily annoyed or irritable: 0 = Not at all Feeling afraid as if something awful might happen: 0 = Not at all Total HENRY-7 score (0-4 normal; 5-9 mild; 10-14 moderate; 15-21 severe): 3 Source: Developed by Drs. Gerald Parson, Ashia Haro, Kenton Moraes and colleagues, with an educational memo from [employer] HENRY-7 Assessment Billing HENRY-7 Assessment Tool: HENRY-7 Assessment 20020 Physical exam (Primary Care) Vital Signs: Last Vital Signs Pulse 96 09/14/24 13:18 BP 138/82 09/14/24 13:18 Pulse Ox 97 09/14/24 13:18 Oxygen Delivery Method Room Air 09/14/24 13:18 BMI result Body Mass Index 26.3 Tobacco/Smoking Status: Tobacco use Status Tobacco use date assessed 09/14/24 09/14/24 13:22 Patient Tobacco Use Status Former Tobacco user 09/14/24 13:18 e-Cigarette/Vaping Use Currently Using 09/14/24 13:18 PHQ-9: PHQ-9 Score PHQ-9: Total score 1 09/14/24 13:24 Depression Screening Interpretation: Negative Thrive Assessment: Date of Thrive Assessment Date Thrive assessed 09/14/24 09/14/24 13:22 Currently or been in a relationship where the following occur: No concerns reported Coding Level of Care Code Est Pt Level 3 (30804) Est Pt Prev Care 18-39y(17353) Diagnoses Encounter for general adult medical examination with abnormal findings Z00.01 Lumbar back pain M54.5 Epigastric discomfort R10.13 Additional Codes HENRY-7 Assessment Billing - HENRY-7 Assessment Tool: HENRY-7 Assessment 32005 ([id number]) PHQ-9 - 79900 - PHQ-9 Billing: Yes ([id number]) Assessment & Plan Assessment & Plan (1) Encounter for general adult medical examination with abnormal findings: Code(s): Z00.01 - Encounter for general adult medical examination with abnormal findings Category: Medical (2) Lumbar back pain: Code(s): M54.5 - Low back pain Category: Medical (3) Epigastric discomfort: Code(s): R10.13 - Epigastric pain Category: Medical Plan Physical exam appointment Patient suffers from chronic back pain and takes muscle relaxer every now and then He also has a history of dyspepsia and is taking PPI, has not drank in 3 years Complaining of epigastric discomfort and is requesting referral to gastroenterology. Patient was instructed to stop taking naproxen that he takes every now and then for back pain - The patient reports intermittent nausea and general stomach discomfort over the past week Health Maintenance - Scheduled fasting labs for a complete evaluation as no labs were performed in the past year. - Abstinence from alcohol, ongoing for nearly three years. - Referral to a gastrointestinal specialist for further investigation of stomach symptoms. Medications - Muscle relaxer for management of back pain, taken every few days as needed. - Stomach medication for gastrointestinal relief. Patient Instructions - Stop the use of Naproxen to see if gastrointestinal symptoms improve. - Follow up with a specialist for further evaluation of stomach issues. - Complete fasting labs as scheduled. - Return for a follow-up in one year for the next physical exam. 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 Panel Fast Today G62.1 - Alcoholic polyneuropathy, M54.5 - Low back pain, Z00.01 - Encounter for general adult medical examination with abnormal findings Lipid Panel Today G62.1 - Alcoholic polyneuropathy, M54.5 - Low back pain, Z00.01 - Encounter for general adult medical examination with abnormal findings Referrals Gastroenterology Referral R10.13 - Epigastric pain Medications: Refilled pantoprazole 40 mg PO DAILY 90 tabs 0RF Discontinued naproxen Discontinued Reason: Doctor's Order 500 mg PO QAM 90 days PRN 90 tabs 1RF pain Resumed cyclobenzaprine Need appointment for further refills 10 mg PO BEDTIME 90 days PRN 90 tabs 1RF muscle spasm cyclobenzaprine 10 mg PO BEDTIME 30 days PRN 30 tabs 0RF muscle spasm
== END 2024-09-14 13:28 | disposition home or self-care (01) ==
PROVIDERS: PCP Internal Medicine; Visit Provider Internal Medicine
DX: Z00.00 Encounter for general adult medical examination without abnormal findings (principal); M54.50 Low back pain, unspecified; R10.13 Epigastric pain

== ENCOUNTER → 2024-09-14 13:12 | Outpatient (BNVA) | payer BC, SELFPAY | PROVIDERS: PCP Internal Medicine; Visit Provider Internal Medicine | DX: Z00.01 Encounter for general adult medical examination with abnormal findings (principal); M54.50 Low back pain, unspecified; R10.13 Epigastric pain | CPT/HCPCS: 96127 ==

== ENCOUNTER 2025-08-12 11:16 | Outpatient (AMB) | payer BC, SELFPAY ==
--- NOTE | 2025-08-12 11:19 | A.OFFVIS_ITS ---
Vital Signs 08/12/25 11:24 Height 6 ft 6 in Weight 213 lb 13.574 oz BMI 24.7 BP 151/81 H Blood Pressure Location Lt brachial Position Sitting Pulse 77 Intake Visit Reasons: abdominal pains Intake Note: Lee presents in the office as a new patient for abdominal pains. CC: He states he has a varicose vein in the scrotum and he has a surgery scheduled Sep. He states that it is getting better. States he gets both constipation and diarrhea. Has hemmorroids due to the constipation. Motor Expert Required: No Allergies No Known Allergies Allergy (Verified 09/14/24 13:20) HPI Comments Details: History of Present Illness The patient is a 35 year old male with prev med hx of etOH use disorder and tobacco use disorder presenting for evaluation of a change in bowel habits and rectal pain. He reports experiencing sharp, shooting anal pain for the last one to two years, which occurs randomly, lasts for 5-6 seconds, and often happens while he is lying down. He denies any history of anal penetration or trauma. 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 The patient also reports constipation and seeing blood mixed in the stool at least 1-2 times a month. This has been ongoing x 6 months. He is concerned due to fam hx of CRC on maternal side. No abd pain, nausea, vomiting, unintentional weight loss. He recently took Oxycodone, which may be contributing to his constipation. In terms of family history - maternal uncle had CRC in his 50s. His maternal grandmother and a maternal aunt have also had bowel resections for unknown reasons. His past medical history includes a right shoulder surgery, without issues with anesthesia. He is a former smoker, having quit about six months ago, denies alcohol use, and reports marijuana use. --- Pt was informed and consented to the use of ambient scribe for this encounter. --- [facility] Surgical History H/O shoulder surgery Family History (Updated 08/12/25 @ 11:27 by ANDREIA Velásquez) Maternal Uncle Colon cancer Maternal Grandmother Colon cancer History of bowel resection Maternal Aunt Colon cancer History of bowel resection Social History Housing: Condominium Alcohol intake: current Alcohol intake frequency: a few times a week Patient Tobacco Use Status: Former Tobacco user e-Cigarette/Vaping Use: Currently Using service: No Current occupational status: employed Cognitive needs: No Hearing needs: No Vision needs: No Review of Systems Narrative Review of Systems - Gastrointestinal: Reports change in bowel habits, constipation, intermittent sharp anal pain for 1-2 years, and seeing blood mixed in the stool monthly. - Denies abdominal pain, nausea, and vomiting. - Genitourinary: Reports left-sided scrotal pain. - Denies pain during sexual intercourse. - Constitutional: Denies belly pain. Physical Exam Exam Exam: Physical Exam No apparent distress Nonicteric Abdomen soft, nondistended Alert and oriented x3, normal gait Vital Signs: Last Vital Signs Pulse 77 08/12/25 11:24 BP 151/81 H 08/12/25 11:24 BMI result Body Mass Index 24.7 Assessment & Plan Assessment & Plan (1) Proctalgia: Code(s): K62.89 - Other specified diseases of anus and rectum Category: Medical (2) Hematochezia: Code(s): K92.1 - Melena Category: Medical Plan 1.Proctalgia Ddx include pedundal nerve injury, pelvic floor dysfunction, proctalgia fugax. Plan: - Pelvic floor PT referral - Flex sig for luminal evaluation 2. Hematochezia The patient reports blood mixed in the stool x 6 months. Although pt attributes this to constipation and possible hemorrhoids, reviewed that outlet bleeding is typically with normal stool with blood noted on wiping. Would recommend flex sig to r/o proctitis, malignancy kayley given fam hx, large friable polyp etc. Plan: - Flexible sigmoidoscopy to be booked. - PEG prep sent - Check CBC and iron panel Follow up after flex sig Orders: Orders Ferritin Today K92.1 - Melena Basic Metabolic Panel Today K92.1 - Melena Complete Blood Count Auto Diff Today K92.1 - Melena Referrals Pelvic Applied Biology Professor Referral K62.89 - Other specified diseases of anus and rectum GI Procedure Notification K62.89 - Other specified diseases of anus and rectum, K92.1 - Melena Medications: New peg 3350-electrolytes 236-22.74-6.74 -5.86 gram (Golytely) as per split prep instructions, until fecal effluent is clear 240 mL PO Q10M 4,000 mL 0RF colonoscopy Coding Level of Care Code New Pt Level 4 (22056) Diagnoses Proctalgia K62.89 Hematochezia K92.1
[2025-08-12 11:24] VITALS: BP 151/81; PULSE 77; BMI 24.7
--- OUTSIDE RECORDS SUMMARY | 2025-08-12 14:22 | XMS_ITS | Clinical Summary ---
Author Organization [facility] Address [address] [place] [address] Care Team Providers Care Food Service Worker Hospital Name Role Phone System, Provider Not In Primary Care Provider Un available Allergies No known active allergies Medications diclofenac (ZORVOLAX) 18 MG capsule Take 18 mg by mouth 3 (three) times a day. Active predniSONE (DELTASONE) 20 MG tabletIndication s:Poison orestes Take 1 tablet (20 mg total) by mouth daily. 3 tabs po QD x 3 days then 2 tabs po QD x 3 days; then 1 tab po QD x 3 days. 18 tablet 07/02/2019 Active Social History Tobacco Use Types Packs/Day Years Used Date Smoking Tobacco: Smoker, Current Status Unknown Smokeless Tobacco: Never Alcohol Use Standard Drinks/Week Comments Yes 0 (1 standard drink = 0.6 oz pur e alcohol) Sex and Gender Information Value Date Recorded Sex Assigned at Male 10/22/2023 8:36 PM EST Legal Sex Male 3:14 PM EDT Gender Identity Male 10/22/2023 8:36 PM EST Sexual Orientation Heterosexual (straight) 10/21 8:36 PM EST Last Filed Vital Signs Vital Sign Reading Time Taken Comments Blood Pressure 142/92 10/22/2023 11:01 PM EST Pulse 74 10/22/2023 11:01 PM EST Temperature 36.8 C (98.2 F) 10/22/2023 7:53 PM EST Respiratory Rate 18 10/22/2023 11:01 PM EST Oxygen Saturation 97% 10/22/2023 11:01 PM EST Inhaled Oxygen Concentration - - Weight 98.8 kg (217 lb 13 oz) 10/22/2023 7:53 PM EST Height 195.6 cm (6' 5 ) 10/22/2023 7:53 PM EST Body Mass Index 25.83 10/22/2023 7:53 PM EST Plan of Treatment Health Maintenance Due Date Last Done Comments Hepatitis C Virus Screening 1992 HIV Screening 01/19/2005 DTaP/Tdap/Td Vaccines (1 - Tdap) 01/19/2011 Hepatitis B Vaccines (1 of 3 - 19+ 3-dose series) 01/19/2011 Influenza Vaccine 03/22/2025 05/28/2013 COVID-19 Vaccine (1 - 2024-2 6 season) 2025 HPV Vaccines (No Doses Required) Completed Pneumococcal Vaccine: Pediat carson (0-5 Years) and At-Risk Patients (6 to 49 Years) Aged Out No longer eligible b ased on patient's age to complete [place] [id number] [facility] [place] [phone] Care Teams Food Service Worker Hospital Relationship Specialty Start Date End Date System, Provider Not In PCP - General 10/22/23
--- OUTSIDE RECORDS SUMMARY | 2025-08-12 14:22 | XMS_ITS ---
Author Name [facility] Organization Unknown Encounters Encounter Type Encounter Reason Primary Diagnosis Location Date Emergency Syncope and collapse Syncope and collapse [facility] 10/22/2023 Care Team Organization Name Specialty Phone Email Start Date End Da te [facility] PROVIDER SYSTEM Primary Care 10/23/2023 [facility] PCP Contact Printer Dry Film 10/23/2023 11/07/2024 [facility] NO PCP Primary Care 10/23/2023
== END 2025-08-12 12:44 | disposition home or self-care (01) ==
LOC: HO.HGI 11:16
PROVIDERS: PCP Internal Medicine; Visit Provider Internal Medicine
DX: K62.89 Other specified diseases of anus and rectum (principal); K92.1 Melena
CPT/HCPCS: 99204

== ENCOUNTER 2025-08-12 11:16 | Outpatient (REF) | payer BC, SELFPAY ==
[2025-08-12 12:13] LABS: MANUAL DIFF FLAG NO
[2025-08-12 12:27] LABS: Hematocrit 41.3 % (42.0-52.0); Hemoglobin 13.8 g/dl (14.0-18.0); Imm Gran Abs Auto 0.01 X10*3/uL (0.00-0.03); Imm Gran Pct Auto 0.2 % (0.0-0.4); Lymphocytes Absolute Auto 1.7 X10*3/uL (1.2-4.9); Mean Corpuscular HGB Conc 33.4 g/dl (31.0-36.0); Mean Corpuscular Hemoglobin 29.9 pg (27.0-33.0); Mean Corpuscular Volume 89.4 fL (80.0-98.0); NRBC Abs Auto 0.000 X10*3/uL (0.0-0.012); NRBC Pct Auto 0.0 /100WBC (0.0-0.2); Platelet Count 300 X10*3/uL (160-400); Red Blood Count 4.62 X10*6/uL (4.60-5.80); White Blood Count 5.8 X10*3/uL (4.8-10.8)
[2025-08-12 13:35] LABS: Alanine Aminotransferase 26 U/L (0-40); Albumin Level 4.8 g/dL (3.5-5.0); Alkaline Phosphatase 74 U/L (39-117); Anion Gap 10 (12-20); Aspartate Amino Transferase 32 U/L (5-37); Blood Urea Nitrogen 16 mg/dL (9-16); Calcium 9.7 mg/dL (8.4-10.2); Carbon Dioxide 25 mmol/L (22-29); Chloride 107 mmol/L (96-108); Cholesterol 130 mg/dL (<200); Estimated Glomerular Filt Rate > 60; HDL Cholesterol 60 mg/dL (>40); Potassium 4.3 mmol/L (3.3-5.1); Sodium 138 mmol/L (135-145); Total Protein 7.6 g/dL (6.5-8.0); Triglycerides 42 mg/dL (<150)
[2025-08-12 14:25] LABS: Ferritin 116 ng/mL (20-250)
[2025-08-12 14:32] LABS: Vitamin B12 754 pg/mL (200-900)
== END 2025-08-12 11:17 | disposition home or self-care (01) ==
LOC: HO.LAB 11:16
PROVIDERS: PCP Internal Medicine; Visit Provider Internal Medicine
DX: Z00.00 Encounter for general adult medical examination without abnormal findings (principal); K62.89 Other specified diseases of anus and rectum; K92.1 Melena; M54.50 Low back pain, unspecified; G62.1 Alcoholic polyneuropathy; Z13.6 Encounter for screening for cardiovascular disorders
CPT/HCPCS: 36415; 80048; 80053; 80061; 82607; 82728; 85025